=== PATIENT | female | born 1975 | race Hispanic/Latino ===

== ENCOUNTER 2018-06-10 16:49 | Emergency (ER) | payer SELFPAY ==
[~2018-06-10] VITALS: Ht 152.4 cm; Wt 89.8 kg
[2018-06-10] MEDS ORDERED: LABETALOL HCL 20 MG/4 ML SYRINGE IV STA (17:25)
[2018-06-10] MEDS ORDERED: ASPIRIN 81 MG CHEW TAB PO ONE (17:30)
[2018-06-10] MEDS ORDERED: LABETALOL HCL 5 MG/ML 20ML VIAL IV ONE (18:00)
[2018-06-10 19:03] LABS: BASOPHILS % 0.3 % (0.0-1.0); EOSINOPHILS # (AUTO) 0.5 (0.0-0.4); HEMATOCRIT 34.2 % (34.2-44.1); HEMOGLOBIN 9.6 g/dL (12.0-16.0); LYMPHOCYTES # (AUTO) 3.4 (1.0-3.2); LYMPHOCYTES % 22.5 % (18.0-39.1); MEAN CORPUSCULAR HEMOGLOBIN 19.2 pg (28-32); MEAN CORPUSCULAR HGB CONC 28.1 g/dL (31-35); MEAN CORPUSCULAR VOLUME 68.4 fL (81-99); MONOCYTES # (AUTO) 0.8 (0.2-0.8); MONOCYTES % 5.2 % (4.4-11.3); NEUTROPHILS # (AUTO) 10.3 (2.1-6.9); NEUTROPHILS % 68.5 % (38.7-80.0); PLATELET COUNT 500 x10e3/uL (140-360); RED CELL DISTRIBUTION WIDTH 20.3 % (11.7-14.4)
[2018-06-10 19:09] LABS: BILIRUBIN,URINE NEGATIVE (NEGATIVE); CLARITY,URINE SL CLOUDY (CLEAR); COLOR,URINE YELLOW (YELLOW); KETONES,URINE NEGATIVE (NEGATIVE); LEUKOCYTE ESTERASE ,URINE NEGATIVE (NEGATIVE); NITRITE,URINE NEGATIVE (NEGATIVE); PROTEIN,URINE DIPSTICK 2+ (NEGATIVE); URINE UROBILINOGEN 0.2 mg/dL (0.2 - 1)
[2018-06-10 19:21] LABS: INR 0.9; PROTHROMBIN TIME 12.6 seconds (11.9-14.5)
[2018-06-10 19:25] LABS: WBC,URINE (MAN) 0-5 /HPF (0-5)
[2018-06-10 19:26] LABS: AMORPHOUS SEDIMENT,URINE FEW (FEW); BACTERIA,URINE FEW /HPF; EPITHELIAL CELLS,URINE FEW /LPF; RBC,URINE 0-5 /HPF (0-5)
[2018-06-10 19:31] LABS: ALBUMIN 3.3 g/dL (3.5-5.0); ALBUMIN/GLOBULIN RATIO 0.7 (0.8-2.0); ANION GAP 13.5 mmol/L (8-16); CALCIUM 9.1 mg/dL (8.4-10.2); CREATININE, SERUM 1.07 mg/dL (0.57-1.11); POTASSIUM 3.5 mmol/L (3.5-5.1)
[2018-06-10 19:39] LABS: CREATINE KINASE MB 0.5 ng/mL (0-5.0)
[2018-06-10] MEDS ORDERED: LABETALOL HCL 5 MG/ML 20ML VIAL IV STA (20:29)
--- NOTE | 2018-06-10 20:52 | Diagnostic Imaging Report ---
EXAM: CTA of the Thoracic Aorta WITH Contrast INDICATION: Hypertension. Left chest tightness COMPARISON: None. TECHNIQUE: Multi-detector CT technology was employed. CTA Gated axial imaging of the chest was performed after the administration of IV contrast. Three-D reformatted images were obtained. IV CONTRAST: 100 mL Isovue-[id number] ORAL CONTRAST: None COMPLICATIONS: None RADIATION DOSE: Total DLP: 1016 mGy*cm Estimated effective dose: (DLP x 0.015 x size factor) mSv CTDIvol has been reviewed. It is below the limits set by the Radiation Protocol Committee (RPC). For optimization of anatomic evaluation, multiplanar reconstruction, maximum intensity projections, and advanced 3-D off-line postprocessing were performed on a dedicated stand-alone workstation under the direct supervision of the interpreting physician. FINDINGS: Potential study limitations: None. LINES/ TUBES: None. VASCULAR WITH ADVANCED 3-D OFF-LINE POSTPROCESSING: Aortic valve morphology is trileaflet and contains no calcifications. The thoracic aorta is normal in course, caliber, and contour. There is no acute aortic pathology, such as dissection, intramural hematoma, or contained rupture. Aortic plaques: None The arch vessel branching pattern is conventional. All of the arch branch vessels appear widely patent in their proximal portions. LUNGS AND AIRWAYS: Scattered groundglass density in the lungs could be due to small airways disease. Airways are patent. PLEURA: The pleural spaces are clear.. HEART AND MEDIASTINUM: The thyroid gland is normal. No mediastinal, hilar or axillary lymphadenopathy. The main pulmonary artery is normal in size. The cardiac chambers demonstrate normal atrioventricular and ventriculoarterial concordance, and systemic and pulmonary venous return. The cardiac chambers are normal in size. The coronary arteries have normal origins and courses. There are no distinct coronary calcifications identified, though this study was not optimized for coronary artery evaluation. There is no pericardial effusion. LIMITED ABDOMEN: Fatty infiltration of the liver. BONES: Unremarkable. IMPRESSION: Normal thoracic aorta. There is no acute aortic pathology. Scattered groundglass density in the lungs could be due to small airways disease Signed by: Dr. Tha Ordoñez M.D. on 06/10/2018 8:47 PM
[2018-06-10] MEDS ORDERED: SODIUM CHLORIDE 0.9% 100 ML 100 ML ONE (22:36)
[2018-06-10] MEDS ORDERED: IOPAMIDOL 370 MG/ML 200 ML INFUS..BTL INJ ONE (22:36)
--- NOTE | 2018-06-11 01:10 | NUR ---
REPORT GIVEN TO ANA MARIA GOMEZ
[2018-06-11] MEDS ORDERED: DIAZEPAM 2 MG TAB PO ONE (03:15)
[2018-06-11] MEDS ORDERED: HYDRALAZINE HCL 20 MG/ML VIAL IV ONE (03:15)
--- NOTE | 2018-06-11 03:29 | NUR ---
PT LYING IN STRETCHER COMFORTABLY. PT DENIES CHEST PAIN, SOB, HEADACHE, LIGHTHEADNESS, DIZZINESS OR RINGING IN EARS. NO DISTRESS NOTED.
[2018-06-11] MEDS ORDERED: HYDROCHLOROTHIA50 MG PO (04:07)
[2018-06-11] MEDS ORDERED: CLONIDINE HCL 0.2 MG TAB PO ONE (04:30)
[2018-06-11 05:29] VITALS: BP 179/93
== END 2018-06-11 04:55 | disposition home or self-care (01) ==
LOC: ER 16:49 → EDSEX 16:49 → ER 06-11 04:55
DX: M54.5 Low back pain (principal); X50.0XXA Overexertion from strenuous movement or load, initial encounter; Y93.F2 Activity, caregiving, lifting; Y99.0 Civilian activity done for income or pay; I10 Essential (primary) hypertension
CPT/HCPCS: 36415; 71275; 80053; 81001; 82550; 82553; 83880; 84484; 85025; 85610; 85730; 93005; 99284; J0360; J3490; Q9967